=== PATIENT | male | born 1990 | race Caucasian/White ===

== ENCOUNTER 2019-04-23 20:40 | Emergency (ER) | payer MEDICAID, OTHER ==
[~2019-04-23] VITALS: Ht 182.9 cm; Wt 66.0 kg
[2019-04-23 20:45] VITALS: BP 124/85
[2019-04-23] MEDS ORDERED: FAMOTIDINE 20 MG TABLET PO ONE (21:00)
[2019-04-23] MEDS ORDERED: FAMOTIDINE 20 MG TABLET ONE (21:09)
== END 2019-04-23 21:42 ==
LOC: ED 21:34
DX: S00.86XA Insect bite (nonvenomous) of other part of head, initial encounter (principal); W57.XXXA Bitten or stung by nonvenomous insect and other nonvenomous arthropods, initial encounter; Y93.89 Activity, other specified; Y92.89 Other specified places as the place of occurrence of the external cause; Y99.8 Other external cause status
CPT/HCPCS: 99284; J7512; Q0177

== ENCOUNTER 2019-05-07 07:37 | Emergency (ER) | payer MEDICAID ==
[~2019-05-07] VITALS: Ht 180.3 cm; Wt 65.0 kg
[2019-05-07 07:40] VITALS: BP 116/80
== END 2019-05-07 08:30 | disposition home or self-care (01) ==
LOC: ED 08:28
DX: K02.9 Dental caries, unspecified (principal)
CPT/HCPCS: 99283